=== PATIENT | male | born 1985 | race Two or more races ===

== ENCOUNTER 2023-10-18 15:07 | Outpatient (CLI) | payer OTHER ==
--- NOTE | 2023-10-18 23:29 | Ultrasound Report ---
PROCEDURE: Soft Tissue Head or Neck INDICATIONS: HEAD MASS TECHNIQUE: Real-time scanning was performed of the patient directed area of palpable concern and pain involving the vertex of the head. COMPARISON: None FINDINGS: There is an oval, hypoechoic nodular mass that is wider than tall in orientation measuring approximat itz 1.8 x 0.7 x 1.3 cm in size. Internal echogenic foci. No associated vascularity. There is increase d through transmission. This is noted within the soft tissues of the scalp. No visualized fractures o f the skin. IMPRESSION: Oval, hypoechoic mass in the scalp soft tissues near the vertex may represent an epider moid cyst, sebaceous cyst, possible pilar cyst, versus other probably benign lesion. If there is continued clinical concern or the need for histologic diagnosis, consider further evaluat ion with excisional biopsy. Reviewed by: Alvarez Teran MD on 10/18/2023 11:27 PM PDT Approved by: Alvarez Teran MD on 10/18/2023 11:27 PM PDT Station ID: [id number]
== END 2023-10-18 15:08 | disposition home or self-care (01) ==
LOC: DI 15:07
PROVIDERS: ATTEND Physician Assistant
DX: R22.0 Localized swelling, mass and lump, head (principal)